=== PATIENT | female | born 1995 | race Caucasian/White ===

== ENCOUNTER 2016-12-27 05:50 | Emergency (ER) | payer SELFPAY ==
[~2016-12-27] VITALS: Ht 165.1 cm; Wt 68.9 kg
[2016-12-27] MEDS ORDERED: CORTISPORIN SOL10 M1 OT (06:07)
== END 2016-12-27 06:14 | disposition home or self-care (01) ==
LOC: ED 05:50
DX: H60.93 Unspecified otitis externa, bilateral (principal); F17.200 Nicotine dependence, unspecified, uncomplicated

== ENCOUNTER 2017-05-01 13:59 | Emergency (ER) | payer SELFPAY ==
[~2017-05-01] VITALS: Ht 165.1 cm; Wt 63.5 kg
[~2017-05-01 13:59] MED LIST: CORTISPORIN SOL10 M1 OT
[2017-05-01] MEDS ORDERED: CORTISPORIN SUS10 ML OT (14:20)
[2017-05-01] MEDS ORDERED: OMNICEF300 MG PO (14:20)
[2017-05-01] MEDS ORDERED: ZYRTEC10 MG PO (14:20)
== END 2017-05-01 14:28 | disposition home or self-care (01) ==
LOC: ED 13:59
DX: H66.92 Otitis media, unspecified, left ear (principal); F17.200 Nicotine dependence, unspecified, uncomplicated

== ENCOUNTER 2017-05-05 21:35 | Emergency (ER) | payer SELFPAY ==
[~2017-05-05] VITALS: Ht 165.1 cm; Wt 64.9 kg
[~2017-05-05 21:35] MED LIST changes: +CORTISPORIN SUS10 ML OT; +OMNICEF300 MG PO; +ZYRTEC10 MG PO
[2017-05-05] MEDS ORDERED: AMOXICILLIN500 M3 PO (22:08)
== END 2017-05-05 23:38 | disposition home or self-care (01) ==
LOC: ED 21:35
DX: H66.92 Otitis media, unspecified, left ear (principal); H72.92 Unspecified perforation of tympanic membrane, left ear; H60.92 Unspecified otitis externa, left ear; Z79.899 Other long term (current) drug therapy

== ENCOUNTER 2018-11-17 21:28 | Emergency (ER) | payer MEDICAID ==
[~2018-11-17] VITALS: Ht 289.5 cm; Wt 66.2 kg
--- NOTE | ~2018-11-17 | EKG ---
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
[~2018-11-17 21:28] MED LIST changes: +AMOXICILLIN500 M3 PO
[2018-11-17 22:40] LABS: BASO % 0.4 % (0.0-1.0); EOS # 0.1 10*3/uL (0.0-0.4); EOS % 1.2 % (1.0-4.0); HEMATOCRIT 37.2 % (37.0-47.0); HEMOGLOBIN 11.9 g/dl (12.0-16.0); LYMPH # 2.9 10*3/uL (1.3-4.4); LYMPH % 29.8 % (27.0-41.0); MEAN CELL VOLUME 84.2 fl (81.0-99.0); MEAN CORPUSCULAR HGB 26.9 pg (27.0-31.0); MEAN PLATELET VOLUME 9.4 fl (9.6-12.3); MONO # 0.6 10*3/uL (0.1-1.0); MONO % 6.1 % (3.0-9.0); NEUT # 6.2 10*3/uL (2.3-7.9); NEUT % 62.3 % (47.0-73.0); PLATELET COUNT AUTOMATED 335 10*3/uL (130-400); RED BLOOD COUNT 4.42 10*6/uL (4.10-5.10); RED CELL DISTRI WIDTH 12.9 % (0-14.5); WHITE BLOOD COUNT 9.9 10*3/uL (4.8-10.8)
[2018-11-17 22:52] LABS: INTERNATIONAL NORM RATIO 0.9 (2.0-3.5)
[2018-11-17 22:57] LABS: ALBUMIN 3.8 gm/dl (3.1-4.5); ALKALINE PHOSPHATASE 66 U/L (45-117); BUN 11 mg/dl (7-24); CHLORIDE 109 mmol/L (98-107); CREATININE 0.87 mg/dL (0.55-1.02); POTASSIUM 3.5 mmol/L (3.5-5.1); SGOT/AST 8 IU/L (3-35); SGPT/ALT 14 U/L (12-78); SODIUM 141 mmol/L (136-145); TOTAL PROTEIN 7.6 gm/dL (6.4-8.2)
[2018-11-17 23:01] LABS: TROPONIN I < 0.015 ng/ml (<0.045)
== END 2018-11-18 00:37 | disposition home or self-care (01) ==
LOC: ED 21:28
PROVIDERS: Physician Assistant
DX: T65.891A Toxic effect of other specified substances, accidental (unintentional), initial encounter (principal); J68.0 Bronchitis and pneumonitis due to chemicals, gases, fumes and vapors; Y92.091 Bathroom in other non-institutional residence as the place of occurrence of the external cause

== ENCOUNTER 2019-05-04 09:38 | Emergency (ER) | payer OTHER ==
[~2019-05-04] VITALS: Ht 165.1 cm; Wt 70.3 kg
[2019-05-04] MEDS ORDERED: VISTARIL25 M2 PO (10:03)
== END 2019-05-04 10:21 | disposition home or self-care (01) ==
LOC: ED 09:38
DX: F41.0 Panic disorder [episodic paroxysmal anxiety] (principal); F41.9 Anxiety disorder, unspecified

== ENCOUNTER 2019-05-16 06:22 | Emergency (ER) | payer OTHER ==
[~2019-05-16] VITALS: Ht 162.5 cm; Wt 70.8 kg
--- NOTE | ~2019-05-16 | EKG ---
[place], [place] ELECTROCARDIOGRAM REPORT NAME: KALPESH BARRAZA UNIT #: [id number] ROOM: DOCTOR: EPIPHANY DRAFT REPORT BIRTHDATE: [birth year] [facility] Test Date: 2019-05-16 Test Time: 07:17:21 Pat Name: KALPESH BARRAZA Department: Room: Gender: F Academic Director: : 1995 Requested By: ELSY SAALS Order Number: [id number] Reading MD: Juana Cosme MD Measurements Intervals [place] Rate: 73 P: 21 WI: 115 QRS: 42 QRSD: 86 T: 3 QT: 375 QTc: 414 Interpretive Statements Sinus rhythm Borderline short [place] interval Compared to ECG 11/17/2018 22:00:42 No significant changes Electronically Signed On 05-17-2019 15:06:14 PST by Juana Cosme MD CM:EKGRPT:ELECTROCARDIOGRAM REPORT [id number] ELSY BRENNAN DRAFT REPORT ELSY SALAS DO
[~2019-05-16 06:22] MED LIST changes: +VISTARIL25 M2 PO
[2019-05-16] MEDS ORDERED: PROZAC10 MG PO (06:38)
[2019-05-16 07:12] LABS: BASO % 0.2 % (0.0-1.0); EOS # 0.1 10*3/uL (0.0-0.4); HEMATOCRIT 38.8 % (37.0-47.0); HEMOGLOBIN 12.8 g/dl (12.0-16.0); LYMPH # 2.4 10*3/uL (1.3-4.4); MEAN CELL VOLUME 84.9 fl (81.0-99.0); MEAN PLATELET VOLUME 9.8 fl (9.6-12.3); MONO # 0.8 10*3/uL (0.1-1.0); MONO % 5.8 % (3.0-9.0); NEUT # 10.1 10*3/uL (2.3-7.9); NEUT % 74.7 % (47.0-73.0); PLATELET COUNT AUTOMATED 267 10*3/uL (130-400); RED BLOOD COUNT 4.57 10*6/uL (4.10-5.10); RED CELL DISTRI WIDTH 14.3 % (0-14.5); WHITE BLOOD COUNT 13.5 10*3/uL (4.8-10.8)
[2019-05-16 07:33] LABS: ALBUMIN 3.5 gm/dl (3.1-4.5); ALKALINE PHOSPHATASE 52 U/L (45-117); BUN 10 mg/dl (7-24); CHLORIDE 109 mmol/L (98-107); CREATININE 0.83 mg/dL (0.55-1.02); POTASSIUM 3.4 mmol/L (3.5-5.1); SGOT/AST 14 IU/L (3-35); SGPT/ALT 13 U/L (12-78); SODIUM 139 mmol/L (136-145); TOTAL PROTEIN 6.8 gm/dL (6.4-8.2)
[2019-05-16 07:34] LABS: TROPONIN I < 0.015 ng/ml (<0.045)
[2019-05-16 07:46] LABS: BILIRUBIN NEGATIVE (NEGATIVE); BLOOD NEGATIVE (NEGATIVE); CLARITY SL CLOUDY (CLEAR); COLOR YELLOW (YELLOW); GLUCOSE NEGATIVE (NEGATIVE); KETONE NEGATIVE (NEGATIVE); LEUKO ESTERASE NEGATIVE (NEGATIVE); NITRITE NEGATIVE (NEGATIVE); SPECIFIC GRAVITY <= 1.005 (1.005-1.030); UROBILINOGEN 0.2 E.U./dl (0.2-1.0)
[2019-05-16 08:01] LABS: BACTERIA TRACE
== END 2019-05-16 10:00 | disposition home or self-care (01) ==
LOC: ED 06:22
PROVIDERS: Emergency Medicine
DX: R55 Syncope and collapse (principal); Z79.899 Other long term (current) drug therapy

== ENCOUNTER 2022-09-16 11:09 | Emergency (ER) | payer OTHER ==
[~2022-09-16] VITALS: Ht 165.1 cm; Wt 78.5 kg
[~2022-09-16 11:09] MED LIST changes: +PROZAC10 MG PO
[2022-09-16 12:05] LABS: BASO % 0.3 % (0.0-1.0); EOS # 0.1 10*3/uL (0.0-0.4); EOS % 0.7 % (1.0-4.0); HEMATOCRIT 41.7 % (37.0-47.0); LYMPH # 2.6 10*3/uL (1.3-4.4); MEAN CELL VOLUME 84.8 fl (81.0-99.0); MEAN CORPUSCULAR HGB 28.9 pg (27.0-31.0); MEAN CORPUSCULAR HGB CONC 34.1 g/dl (33.0-37.0); MEAN PLATELET VOLUME 9.2 fl (9.6-12.3); MONO # 0.6 10*3/uL (0.1-1.0); MONO % 4.6 % (3.0-9.0); NEUT # 8.5 10*3/uL (2.3-7.9); NEUT % 72.1 % (47.0-73.0); PLATELET COUNT AUTOMATED 325 10*3/uL (130-400); RED BLOOD COUNT 4.92 10*6/uL (4.10-5.10); RED CELL DISTRI WIDTH 12.8 % (0-14.5); WHITE BLOOD COUNT 11.8 10*3/uL (4.8-10.8)
[2022-09-16 12:36] LABS: ALKALINE PHOSPHATASE 57 U/L (46-116); BETA-HCG, QUANT < 3.0 mIU/mL (0-10); BUN 7 mg/dl (9-23); CHLORIDE 108 mmol/L (98-107); LIPASE 30 U/L (12-53); POTASSIUM 3.7 mmol/L (3.4-5.1); SGPT/ALT 9 U/L (10-49); TOTAL PROTEIN 6.7 gm/dL (6.0-8.0)
[2022-09-16 13:19] LABS: BILIRUBIN Negative (Negative); BLOOD Negative (Negative); CLARITY Clear (Clear); COLOR Yellow (Yellow); GLUCOSE Negative (Negative); KETONE Negative (Negative); LEUKO ESTERASE 2+ (Negative); NITRITE Negative (Negative); PH 5.5 (4.5-8.0); SPECIFIC GRAVITY <= 1.005 (1.001-1.030); UROBILINOGEN 0.2 E.U./dl (0.0-1.0)
[2022-09-16 13:46] LABS: BACTERIA 1+; EPITHELIAL CELLS 16-20
[2022-09-16] MEDS ORDERED: ONDANSETRON4 MG SL (14:38)
[2022-09-16] MEDS ORDERED: Motrin,Rufen800 MG PO (14:38)
== END 2022-09-16 14:42 | disposition home or self-care (01) ==
LOC: ED 11:09
PROVIDERS: Physician Assistant
DX: N83.202 Unspecified ovarian cyst, left side (principal); Z98.890 Other specified postprocedural states; F41.9 Anxiety disorder, unspecified

== ENCOUNTER → 2022-10-23 | Outpatient (CLI) | payer OTHER ==
[~2022-10-23] MED LIST changes: +Motrin,Rufen800 MG PO; +ONDANSETRON4 MG SL
== END | disposition home or self-care (01) ==
LOC: LAB 11:42
PROVIDERS: ATTEND Obstetrics & Gynecology
DX: Z32.01 Encounter for pregnancy test, result positive (principal)

== ENCOUNTER 2023-05-27 12:15 | Emergency (ER) | payer OTHER ==
[~2023-05-27] VITALS: Ht 162.5 cm; Wt 77.1 kg
[2023-05-27] MEDS ORDERED: MEDROL DOSEPAK4 MG PO (14:00)
== END 2023-05-27 14:34 | disposition home or self-care (01) ==
LOC: ED 12:15
DX: H68.102 Unspecified obstruction of Eustachian tube, left ear (principal); F41.9 Anxiety disorder, unspecified

== ENCOUNTER 2023-11-23 07:01 | Emergency (ER) | payer OTHER ==
[~2023-11-23] VITALS: Ht 162.5 cm; Wt 74.8 kg
[~2023-11-23 07:01] MED LIST changes: +MEDROL DOSEPAK4 MG PO
[2023-11-23] MEDS ORDERED: diphenhydrAMINE hydrochloride 50 MG/ML VIAL IM ONE (07:30)
[2023-11-23] MEDS ORDERED: Dexamethasone Sodium Phospha 20 MG/5 ML VIAL IM ONE (07:30)
[2023-11-23] MEDS ORDERED: PREDNISONE20 M1 PO (07:30)
== END 2023-11-23 07:48 | disposition home or self-care (01) ==
LOC: ED 07:01
DX: L25.9 Unspecified contact dermatitis, unspecified cause (principal); R21 Rash and other nonspecific skin eruption; F41.9 Anxiety disorder, unspecified